=== PATIENT | female | born 1965 | race American Indian/Alaskan Native ===

== ENCOUNTER 2020-01-22 08:51 | Emergency (ER) | payer SELFPAY ==
[2020-01-22 09:02] VITALS: BP 132/89
--- NOTE | 2020-01-22 09:18 | XRay Report ---
CHEST 2 VIEWS INDICATION / CLINICAL INFORMATION: SOB, exposed to COVID. COMPARISON: None available. FINDINGS: SUPPORT DEVICES: None. HEART / MEDIASTINUM: No significant abnormality. LUNGS / PLEURA: No significant pulmonary or pleural abnormality. .No pneumothorax. ADDITIONAL FINDINGS: No significant additional findings. IMPRESSION: 1. No acute findings. Signer Name: Ashwin Shepherd MD Signed: 01/22/2020 9:14 AM Workstation Name: [id number]
--- NOTE | 2020-01-22 11:01 | Emergency Department Report ---
- General Chief Complaint: Upper Respiratory Infection Stated Complaint: POSS COVID/SOB/DIZZY Time Seen by Provider: 01/22/20 10:55 Source: patient Mode of arrival: Ambulatory Limitations: No Limitations - History of Present Illness Initial Comments: Patient is a 54-year-old female presents emergency room with complaints of upper respiratory symptoms that began approximately 2 weeks ago. She states that she has been in contact with a COVID-19 positive person, she states that her sister tested positive and she was concerned that she now had COVID-19. She has associated cough, shortness of breath, decreased appetite, lightheadedness, 2 episodes of diarrhea a day. She denies any chest pain, nausea, vomiting, fever, leg swelling, dizziness. She denies any recent travel, recent surgery, hormone use. She denies any past medical history. She denies any daily medications. She is a non-smoker. - Related Data Allergies Allergy/AdvReac Type Severity Reaction Status Date / Time No Known Allergies Allergy Unverified 01/22/20 08:58 ED Review of Systems ROS: Stated complaint: POSS COVID/SOB/DIZZY Other details as noted in HPI Comment: All other systems reviewed and negative ED Past Medical Hx - Past Medical History Previous Medical History?: No - Surgical History Past Surgical History?: No - Social History Smoking Status: Never Smoker Substance Use Type: None ED Physical Exam - General Limitations: No Limitations General appearance: alert, in no apparent distress - Head Head exam: Present: atraumatic, normocephalic - Eye Eye exam: Present: normal appearance - ENT ENT exam: Present: mucous membranes moist - Respiratory Respiratory exam: Present: normal lung sounds bilaterally. Absent: respiratory distress, wheezes, rales, rhonchi, stridor, chest wall tenderness, accessory muscle use, decreased breath sounds, prolonged expiratory - Cardiovascular Cardiovascular Exam: Present: regular rate, normal rhythm, normal heart sounds. Absent: systolic murmur, diastolic murmur, rubs, gallop - Neurological Exam Neurological exam: Present: alert, oriented X3 - Psychiatric Psychiatric exam: Present: normal affect, normal mood - Skin Skin exam: Present: warm, dry, intact ED Course Vital Signs 01/22/20 01/22/20 08:55 11:21 Temperature 97.7 F Pulse Rate 105 H 94 H Respiratory 18 20 Rate Blood Pressure 132/89 O2 Sat by Pulse 100 96 Oximetry ED Medical Decision Making - Radiology Data Radiology results: report reviewed CHEST 2 VIEWS INDICATION / CLINICAL INFORMATION: SOB, exposed to COVID. COMPARISON: None available. FINDINGS: SUPPORT DEVICES: None. HEART / MEDIASTINUM: No significant abnormality. LUNGS / PLEURA: No significant pulmonary or pleural abnormality. .No pneumothorax. ADDITIONAL FINDINGS: No significant additional findings. IMPRESSION: 1. No acute findings. Signer Name: Ashwin Shepherd MD Signed: 01/22/2020 9:14 AM Workstation Name: [id number] Transcribed By: SS Dictated By: Ashwin Shepherd MD Electronically Authenticated By: Ashwin Shepherd MD Signed Date/Time: 01/22/20913 DD/ 3 TD/TT: - Medical Decision Making Patient is a 54-year-old female presents emergency room with complaints of upper respiratory symptoms that began approximately 2 weeks ago. She states that she has been in contact with a COVID-19 positive person, she states that her sister tested positive and she was concerned that she now had COVID-19. She has associated cough, shortness of breath, decreased appetite, lightheadedness, 2 episodes of diarrhea a day. She denies any chest pain, nausea, vomiting, fever, leg swelling, dizziness. She denies any recent travel, recent surgery, hormone use. She denies any past medical history. She denies any daily medications. She is a non-smoker. Initial vitals with mild tachycardia in triage, on repeat heart rate is 94 bpm, upon auscultation, she has a normal rate and rhythm. Patient is afebrile, no hypoxia, no hypotension. She has moist mucous membranes, her breath sounds are clear bilaterally, no wheezing, no rales, no rhonchi. Chest x-ray was ordered prior to my examination secondary to her shortness of breath. CXR: 1. No acute findings. Patient denies any shortness of breath currently. She has no clinical signs of acute bacterial pneumonia, her x-ray is normal, she has no productive cough, no fever. She is low risk based on Wells criteria for PE. Given that she is having viral-like symptoms and has been in contact with a COVID-19 not positive person, could potentially have COVID-19. She does not meet this hospital's protocols for hospital testing or admission. advised pt Please increase your fluid intake over the next several days. May take Tylenol as needed for fever or body aches. May take vxfw-eue-feilssg cold symptom relief medication such as Mucinex or TheraFlu. Get plenty of rest. Follow-up with a primary care doctor for reexamination. Return to emergency room immediately for any new or worsening symptoms including but not limited to difficulty breathing, shortness of breath, severe chest pain, unable to tolerate by mouth intake, etc. Please self quarantine for 2 weeks from the onset of your symptoms. Please do not go out in public. If you are around others at home please wear a mask. If you need to cough or sneeze please do so in a napkin and immediately throw it away and immediately wash your hands. Wash your hands frequently. Wipe everything down. Recommend for you to get COVID-19 testing, may have this done at primary care doctor, health department, [facility] or [facility] drive-through testing centers. Critical care attestation.: If time is entered above; I have spent that time in minutes in the direct care of this critically ill patient, excluding procedure time. ED Disposition Clinical Impression: Upper respiratory infection Qualifiers: URI type: unspecified URI Qualified Code(s): J06.9 - Acute upper respiratory infection, unspecified Disposition: DC- TO HOME OR SELFCARE Is pt being admited?: No Does the pt Need Aspirin: No Condition: Stable Instructions: COVID-19, Viral Syndrome (ED) Additional Instructions: Please increase your fluid intake over the next several days. May take Tylenol as needed for fever or body aches. May take ocyx-nvn-gucezou cold symptom relief medication such as Mucinex or TheraFlu. Get plenty of rest. Follow-up with a primary care doctor for reexamination. Return to emergency room immediately for any new or worsening symptoms including but not limited to difficulty breathing, shortness of breath, severe chest pain, unable to tolerate by mouth intake, etc. Please self quarantine for 2 weeks from the onset of your symptoms. Please do not go out in public. If you are around others at home please wear a mask. If you need to cough or sneeze please do so in a napkin and immediately throw it away and immediately wash your hands. Wash your hands frequently. Wipe everything down. Recommend for you to get COVID-19 testing, may have this done at primary care doctor, health department, [facility] or [facility] drive-through testing centers. Referrals: VIPUL DOYLE MD [Staff Physician] - 2-3 Days [facility] [Provider Group] - 2-3 Days [facility] [Outside] - 2-3 Days [facility] [Outside] - 2-3 Days Time of Disposition: 11:00 Print Language: [place]
== END 2020-01-22 11:22 | disposition home or self-care (01) ==
LOC: ED 08:51
DX: J06.9 Acute upper respiratory infection, unspecified (principal)
CPT/HCPCS: 71046; 99283